=== PATIENT | female | born 1990 | race Caucasian/White ===

== ENCOUNTER 2017-05-28 13:12 | Inpatient (IN) ==
[2017-05-28] MEDS ORDERED: BUTORPHANOL 1 MG/ML VIAL IV PRN (14:03)
[2017-05-28] MEDS ORDERED: MEPERIDINE 50 MG/1 ML VIAL IM PRN (14:03)
[2017-05-28] MEDS ORDERED: ONDANSETRON 4 MG/2 ML VIAL IV PRN (14:03)
[2017-05-28 14:35] LABS: Basophils % 0.4 % (0.0-0.8); Eosinophils # 0.1 10*3/uL (0.0-0.87); Hematocrit 37.7 VOL% (35.7-47.0); Hemoglobin 11.9 GM/DL (12.0-16.0); Immature Granulocytes % 0.3 %; Immature Granulocytes Absolute 0.02 #; Lymphocytes # 2.5 10*3/uL (1.4-4.0); Lymphocytes % 32.6 % (21.3-54.2); Mean Corpuscular HGB Conc 31.6 GM/DL (32-36); Mean Corpuscular Hemoglobin 24 PG (27-34); Mean Corpuscular Volume 76.2 FL (87-102); Mean Platelet Volume 10.3 FL (9.6-12.0); Monocytes # 0.5 10*3/uL (0.11-0.8); Monocytes % 5.9 % (1.7-12.7); Neutrophils # 4.6 10*3/uL (1.4-7.4); Neutrophils % 59.8 % (38.7-73.9); Platelet Count 364 T/CUMM (130-400); Red Blood Count 4.95 MC/CUMM (3.8-5.5); Red Cell Distribution Width 18.1 % (9.3-17.3); White Blood Count 7.7 T/CUMM (4-12)
[2017-05-28] MEDS: LACTATED RINGERS 1,000 ML IV SCH ×2 (14:50→21:13)
[2017-05-28 15:01] LABS: Albumin 3.4 G/DL (3.4-5.0); Bilirubin,Total 0.4 MG/DL (0.2-1.0); Calcium 9.4 MG/DL (8.5-10.1); Osmolality,Calculated 273.7 MOS/KG (273-304); Potassium 3.8 MMOL/L (3.5-5.1)
[2017-05-28] MEDS: miSOPROStol 200 MCG TABLET PO SCH ×2 (15:10→21:49)
[2017-05-28] MEDS: ACETAMINOPHEN 500 MG TABLET PO PRN ×2 (15:24→21:09)
[2017-05-28] MEDS: SERTRALINE 50 MG TABLET PO SCH (15:58)
[2017-05-28] MEDS ORDERED: DIPHENOXYLATE/ATROPINE 2.5-0.025 MG TABLET PO PRN (19:09)
[2017-05-29] MEDS ORDERED: OXYTOCIN/LR 20 UNIT/1,000 ML BAG IV ONE ×2 (02:12→02:13)
[2017-05-29] MEDS ORDERED: IBUPROFEN 800 MG TABLET PO PRN (03:40)
[2017-05-29 08:38] LABS: Basophils % 0.3 % (0.0-0.8); Eosinophils # 0.1 10*3/uL (0.0-0.87); Hematocrit 33.9 VOL% (35.7-47.0); Hemoglobin 10.7 GM/DL (12.0-16.0); Immature Granulocytes % 0.4 %; Immature Granulocytes Absolute 0.03 #; Lymphocytes # 2.7 10*3/uL (1.4-4.0); Mean Corpuscular HGB Conc 31.6 GM/DL (32-36); Mean Corpuscular Hemoglobin 24 PG (27-34); Mean Corpuscular Volume 76.5 FL (87-102); Mean Platelet Volume 10.5 FL (9.6-12.0); Monocytes # 0.3 10*3/uL (0.11-0.8); Monocytes % 4.8 % (1.7-12.7); Neutrophils # 3.9 10*3/uL (1.4-7.4); Neutrophils % 54.5 % (38.7-73.9); Platelet Count 279 T/CUMM (130-400); Red Blood Count 4.43 MC/CUMM (3.8-5.5); Red Cell Distribution Width 17.9 % (9.3-17.3); White Blood Count 7.1 T/CUMM (4-12)
[2017-05-29] MEDS ORDERED: miSOPROStol 200 MCG TABLET PO ONE (08:40)
[2017-05-29] MEDS: ACETAMINOPHEN 500 MG TABLET PO PRN (09:06)
[2017-05-29] MEDS: SERTRALINE 50 MG TABLET PO SCH (09:12)
[2017-05-29 11:21] VITALS: BP 117/59
== END 2017-05-29 10:20 | disposition home or self-care (01) | DRG 564 ==
LOC: N.LDOUT 13:12 → N.LD 13:15
PROVIDERS: ADMIT Obstetrics & Gynecology; ATTEND Obstetrics & Gynecology

== ENCOUNTER 2021-01-21 18:34 | Inpatient (IN) ==
[2021-01-21] MEDS ORDERED: MEPERIDINE 50 MG/1 ML VIAL IV PRN (19:12)
[2021-01-21] MEDS ORDERED: BUTORPHANOL 2 MG/ML VIAL IV PRN (19:12)
[2021-01-21] MEDS ORDERED: ONDANSETRON 4 MG/2 ML VIAL IV PRN (19:12)
[2021-01-21 19:41] LABS: Bacteria,Urine Few /HPF (Few); Bilirubin,Urine Negative (Negative); Blood, Urine Negative (Negative); Glucose,Urine (UA) Negative (Negative); Ketones,Urine 20 mg/dL (Negative); Mucus,Urine Occasional /LPF (Occasional); Nitrite,Urine Negative (Negative); Protein,Urine 30 MG/DL; RBC,Urine 1 /HPF (0-4); Squamous Epithelial Cell,Urine Occasional /HPF (0-10); Urine Appearance CLEAR (Clear); Urine Color Yellow (Yellow); Urine Specific Gravity 1.009 (1.001-1.035); Urine Urobilinogen < 2.0 EU/DL (0.2-1.0)
[2021-01-21 19:44] LABS: Basophils % 0.1 % (0.0-0.8); Eosinophils # 0.1 10*3/uL (0.0-0.87); Eosinophils % 0.7 % (0.00-10.9); Hematocrit 28.3 VOL% (35.7-47.0); Hemoglobin 8.6 GM/DL (12.0-16.0); Immature Granulocytes % 0.5 %; Immature Granulocytes Absolute 0.04 #; Lymphocytes # 1.9 10*3/uL (1.4-4.0); Lymphocytes % 25.7 % (21.3-54.2); Mean Corpuscular HGB Conc 30.4 GM/DL (32-36); Mean Corpuscular Volume 69.9 FL (87-102); Mean Platelet Volume 11.1 FL (9.6-12.0); Monocytes % 5.5 % (1.7-12.7); Neutrophils % 67.5 % (38.7-73.9); Platelet Count 361 T/CUMM (130-400); Red Blood Count 4.05 MC/CUMM (3.8-5.5); Red Cell Distribution Width 15.8 % (9.3-17.3); White Blood Count 7.4 T/CUMM (4-12)
[2021-01-21] MEDS ORDERED: LACTATED RINGERS 1,000 ML IV SCH (20:00)
[2021-01-21] MEDS: CLINDAMYCIN INJ 900 MG/50 ML PREMIX IV SCH (20:08)
[2021-01-21] MEDS ORDERED: DEXTROSE 50% 25 GM/50 ML VIAL IV PRN (20:25)
[2021-01-21] MEDS ORDERED: GLUCAGON 1 MG VIAL IM PRN (20:25)
[2021-01-21 20:40] LABS: Albumin 2.3 G/DL (3.4-5.0); Bilirubin,Total 0.6 MG/DL (0.20-1.00); Calcium 9.5 MG/DL (8.5-10.1); Osmolality,Calculated 257.8 MOS/KG (273-304); Potassium 3.9 MMOL/L (3.5-5.1); Total Protein 6.4 G/DL (6.4-8.2)
[2021-01-21] MEDS ORDERED: ALUMINUM/MAGNES/SIMETH MAX STR 30 ML UDCUP PO PRN (20:51)
[2021-01-21 21:00] LABS: Hypochromasia 1+; Lymphocytes 17 % (20-55); Microcytosis 2+; Platelet Estimate Increased; Reactive Lymphocytes Few; Segmented Neutrophils 78 % (50-85); Total Cells Counted 100
[2021-01-21 23:08] LABS: Barbiturates Screen,Urine Negative (Negative); Benzodiazepines Screen,Urine Negative (Negative); Cannabinoid Screen,Urine Negative (Negative); Opiate Screen,Urine Negative (Negative); Phencyclidine Screen,Urine Negative (Negative)
[2021-01-22] MEDS: INSULIN REGULAR 100 UNIT/ML SUBCUT SCH ×3 (00:09→18:33)
[2021-01-22] MEDS ORDERED: FAMOTIDINE 20 MG/2 ML VIAL IV PRN (01:38)
[2021-01-22] MEDS ORDERED: CITRIC ACID/SODIUM CITRATE 30 ML UDCUP PO PRN (01:38)
[2021-01-22] MEDS: CLINDAMYCIN INJ 900 MG/50 ML PREMIX IV SCH ×3 (02:03→19:47)
[2021-01-22] MEDS ORDERED: TRANEXAMIC ACID 1,000 MG/10 ML VIAL ONE (02:15)
[2021-01-22] MEDS ORDERED: METHYLERGONOVINE 0.2 MG/1 ML AMP ONE (02:15)
[2021-01-22] MEDS ORDERED: SODIUM CHLORIDE 0.9% 0 ML IV ONE (02:15)
[2021-01-22] MEDS ORDERED: CARBOPROST TROMETHAMINE 250 MCG/ML AMP IM ONE (02:16)
[2021-01-22] MEDS ORDERED: miSOPROStoL 200 MCG TABLET ONE (02:18)
[2021-01-22] MEDS ORDERED: OXYTOCIN/LR 20 UNIT/1,000 ML BAG IV ONE ×2 (02:19→04:00)
[2021-01-22] MEDS ORDERED: MIDAZOLAM 2 MG/2 ML VIAL ONE (02:59)
[2021-01-22] MEDS ORDERED: fentaNYL 100 MCG/2 ML VIAL ONE ×2 (02:59→03:12)
[2021-01-22 03:13] LABS: Cord Arterial Blood HCO3 22.2 MMOL/L
[2021-01-22 03:17] LABS: Cord Venous Blood HCO3 23.4 MMOL/L; Cord Venous Blood PCO2 54.2 MMHG; Cord Venous Blood PO2 32.9
[2021-01-22] MEDS ORDERED: PHENYLEPHRINE 10 MG/1 ML VIAL IV ONE (03:20)
[2021-01-22] MEDS ORDERED: propofoL 200 MG/20 ML VIAL IV ONE (03:33)
[2021-01-22] MEDS ORDERED: SUCCINYLCHOLINE 200 MG/10 ML VIAL ONE (03:33)
[2021-01-22] MEDS ORDERED: ONDANSETRON 4 MG/2 ML VIAL ONE (03:33)
[2021-01-22] MEDS ORDERED: SEVOFLURANE 1 UNIT/15 MINUTE INH ONE (03:34)
[2021-01-22] MEDS ORDERED: ACETAMINOPHEN 325 MG TABLET PO PRN (03:47)
[2021-01-22] MEDS ORDERED: ONDANSETRON 4 MG/2 ML VIAL IV PRN (03:47)
[2021-01-22] MEDS ORDERED: SIMETHICONE CHEW 80 MG TABLET PO PRN (03:47)
[2021-01-22] MEDS ORDERED: RHO(D) IMMUNE GLOBULIN 300 MCG SYRINGE IM ONE (03:47)
[2021-01-22] MEDS ORDERED: LACTATED RINGERS 1,000 ML IV SCH (04:00)
[2021-01-22] MEDS ORDERED: HYDROmorphone 2 MG/1 ML VIAL IV PRN (04:05)
[2021-01-22 05:08] LABS: Protein/Creatinine Ratio,Urine 0.8 RATIO
[2021-01-22 05:22] LABS: Basophils % 0.2 % (0.0-0.8); Eosinophils % 0.3 % (0.00-10.9); Hematocrit 28.3 VOL% (35.7-47.0); Hemoglobin 8.3 GM/DL (12.0-16.0); Immature Granulocytes % 2.1 %; Immature Granulocytes Absolute 0.21 #; Lymphocytes # 1.1 10*3/uL (1.4-4.0); Mean Corpuscular HGB Conc 29.3 GM/DL (32-36); Mean Corpuscular Volume 72.4 FL (87-102); Mean Platelet Volume 11.2 FL (9.6-12.0); Neutrophils % 81.4 % (38.7-73.9); Platelet Count 358 T/CUMM (130-400); Red Blood Count 3.91 MC/CUMM (3.8-5.5); Red Cell Distribution Width 15.8 % (9.3-17.3)
[2021-01-22 05:33] LABS: INR 0.9; PT Patient Result 10.3 SECS (10.5-12.0); Partial Thromboplastin Time 25.9 SECS (23.8-32.1)
[2021-01-22 05:37] LABS: Albumin 2.1 G/DL (3.4-5.0); Bilirubin,Direct 0.51 MG/DL (0.0-0.20); Bilirubin,Total 0.9 MG/DL (0.20-1.00); Calcium 8.5 MG/DL (8.5-10.1); Osmolality,Calculated 265.4 MOS/KG (273-304); Potassium 4.4 MMOL/L (3.5-5.1); Total Protein 5.9 G/DL (6.4-8.2); Uric Acid 5.8 MG/DL (2.6-6.0)
[2021-01-22] MEDS ORDERED: CLINDAMYCIN INJ 900 MG/50 ML PREMIX IV SCH (10:00)
[2021-01-22] MEDS: IBUPROFEN 800 MG TABLET PO PRN (11:28)
[2021-01-22 11:32] LABS: Basophils % 0.2 % (0.0-0.8); Eosinophils % 0.2 % (0.00-10.9); Hematocrit 27.5 VOL% (35.7-47.0); Hemoglobin 8.1 GM/DL (12.0-16.0); Immature Granulocytes % 0.5 %; Immature Granulocytes Absolute 0.04 #; Lymphocytes # 1.5 10*3/uL (1.4-4.0); Lymphocytes % 17.3 % (21.3-54.2); Mean Corpuscular HGB Conc 29.5 GM/DL (32-36); Mean Corpuscular Volume 70.3 FL (87-102); Mean Platelet Volume 10.8 FL (9.6-12.0); Monocytes % 6.8 % (1.7-12.7); Platelet Count 307 T/CUMM (130-400); Red Blood Count 3.91 MC/CUMM (3.8-5.5); Red Cell Distribution Width 15.9 % (9.3-17.3); White Blood Count 8.5 T/CUMM (4-12)
[2021-01-22] MEDS: MULTIVITAMIN (PRENATAL) TABLET PO SCH (12:09)
[2021-01-22] MEDS: DOCUSATE SODIUM 100 MG CAPSULE PO SCH ×3 (12:09→20:30)
[2021-01-22] MEDS: MAGNESIUM HYDROXIDE SUSP 30 ML UDCUP PO PRN (19:47)
[2021-01-22] MEDS: ENOXAPARIN 40 MG/0.4 ML SYRINGE SUBCUT SCH (21:12)
[2021-01-23] MEDS: INSULIN REGULAR 100 UNIT/ML SUBCUT SCH ×4 (00:42→17:49)
[2021-01-23] MEDS: MAGNESIUM HYDROXIDE SUSP 30 ML UDCUP PO PRN ×3 (03:20→19:55)
[2021-01-23 06:48] LABS: Basophils % 0.3 % (0.0-0.8); Eosinophils # 0.1 10*3/uL (0.0-0.87); Eosinophils % 1.1 % (0.00-10.9); Hematocrit 27.1 VOL% (35.7-47.0); Hemoglobin 8.1 GM/DL (12.0-16.0); Immature Granulocytes % 0.4 %; Immature Granulocytes Absolute 0.03 #; Lymphocytes # 1.4 10*3/uL (1.4-4.0); Lymphocytes % 20.1 % (21.3-54.2); Mean Corpuscular HGB Conc 29.9 GM/DL (32-36); Mean Corpuscular Volume 72.1 FL (87-102); Mean Platelet Volume 11.4 FL (9.6-12.0); Monocytes % 6.8 % (1.7-12.7); Neutrophils % 71.3 % (38.7-73.9); Platelet Count 340 T/CUMM (130-400); Red Blood Count 3.76 MC/CUMM (3.8-5.5); Red Cell Distribution Width 15.9 % (9.3-17.3)
[2021-01-23 07:12] LABS: Albumin 2.2 G/DL (3.4-5.0); Bilirubin,Total 0.9 MG/DL (0.20-1.00); Calcium 8.8 MG/DL (8.5-10.1); Osmolality,Calculated 269.8 MOS/KG (273-304); Potassium 4.1 MMOL/L (3.5-5.1); Total Protein 6.2 G/DL (6.4-8.2)
[2021-01-23] MEDS: METOCLOPRAMIDE 10 MG TABLET PO SCH ×2 (07:45→17:21)
[2021-01-23] MEDS: DOCUSATE SODIUM 100 MG CAPSULE PO SCH ×3 (09:04→21:49)
[2021-01-23] MEDS: MULTIVITAMIN (PRENATAL) TABLET PO SCH (09:04)
[2021-01-23] MEDS: FERROUS SULFATE 325 MG TABLET PO SCH ×3 (09:04→21:49)
[2021-01-23] MEDS: IBUPROFEN 800 MG TABLET PO PRN ×2 (13:24→20:48)
[2021-01-23] MEDS: ENOXAPARIN 40 MG/0.4 ML SYRINGE SUBCUT SCH (21:55)
[2021-01-24] MEDS: INSULIN REGULAR 100 UNIT/ML SUBCUT SCH ×3 (00:55→11:30)
[2021-01-24] MEDS: METOCLOPRAMIDE 10 MG TABLET PO SCH (00:57)
[2021-01-24] MEDS: IBUPROFEN 800 MG TABLET PO PRN (04:31)
[2021-01-24 06:46] LABS: Albumin 2.1 G/DL (3.4-5.0); Bilirubin,Total 0.7 MG/DL (0.20-1.00); Calcium 8.4 MG/DL (8.5-10.1); Osmolality,Calculated 267.1 MOS/KG (273-304); Potassium 3.9 MMOL/L (3.5-5.1); Total Protein 5.9 G/DL (6.4-8.2)
[2021-01-24] MEDS: DOCUSATE SODIUM 100 MG CAPSULE PO SCH (08:25)
[2021-01-24] MEDS: MULTIVITAMIN (PRENATAL) TABLET PO SCH (08:25)
[2021-01-24] MEDS: FERROUS SULFATE 325 MG TABLET PO SCH (08:26)
[2021-01-24 11:06] VITALS: BP 125/74
[2021-01-24] MEDS ORDERED: DIPH/TET/ACEL PERT BOOSTER VACCINE 0.5 ML VIAL IM ONE (12:44)
== END 2021-01-24 13:20 | disposition home or self-care (01) | DRG 540 ==
LOC: N.LDOUT 18:34 → N.LD 18:38 → N.OB 01-22 10:36
PROVIDERS: ADMIT Obstetrics & Gynecology; ATTEND Obstetrics & Gynecology
PROC: LDCSECT (ICD-10-PCS; 2021-01-22 02:30)